=== PATIENT | male | born 1970 | race Caucasian/White ===

== ENCOUNTER → 2022-08-14 | Outpatient (CLI) | payer BC ==
--- NOTE | 2022-08-14 12:49 | US ---
EXAMINATION TYPE: US abdomen limited DATE OF EXAM: 08/14/2022 COMPARISON: NONE CLINICAL INDICATION: Male, 52 years old with history of R10.11 RT UPPER QUAD PAIN; RUQ pain, nausea TECHNIQUE: Multiple sonographic images of the right upper quadrant are obtained. FINDINGS: EXAM MEASUREMENTS: Liver Length: 16.0 cm Gallbladder Wall: 0.2 cm Right Kidney: 11.7 x 5.8 x 4.8 cm SHARE HOLDER NOTES:Technical limitations due to large amount of overlying bowel content Pancreas: Obscured by bowel gas Liver: limited evaluation, best seen intercostally Gallbladder: no evidence of stones as visualized Evidence for sonographic Flannery's sign: no CBD: Obscured by overlying bowel gas Right Kidney: no evidence of hydronephrosis IMPRESSION: 1. Right upper quadrant ultrasound unremarkable as visualized
== END | disposition home or self-care (01) ==
LOC: RADUSWWP 08:12
PROVIDERS: ATTEND Family Medicine
DX: R10.11 Right upper quadrant pain (principal)
CPT/HCPCS: 76705

== ENCOUNTER → 2023-11-23 | Outpatient (CLI) | payer BC ==
--- NOTE | 2023-11-23 15:25 | XR ---
EXAMINATION TYPE: XR Hip Complete RT DATE OF EXAM: 11/23/2023 3:01 PM CLINICAL INDICATION:Male, 53 years old with history of [id number] RT HIP PAIN; Y[facility] COMPARISON: None. TECHNIQUE: XR Hip Complete RT; hip was examined in the frontal and lateral projections and a AP pelvi s. FINDINGS: No evidence for acute process, joint dislocation or significant soft tissue swelling. Osteo phyte formation of the superior acetabulum of the hip. There is mild joint space narrowing. IMPRESSION: 1. No evidence for acute process. 2. Mild hip osteoarthrosis.
== END | disposition home or self-care (01) ==
LOC: RADXRYALE 14:49
PROVIDERS: ATTEND Nurse Practitioner Family
DX: M16.11 Unilateral primary osteoarthritis, right hip (principal)
CPT/HCPCS: 73502